=== PATIENT | female | born 1975 | race Asian ===

== ENCOUNTER 2023-07-15 16:01 | Emergency (ER) | payer OTHER ==
[2023-07-15 16:24] VITALS: BP 123/87; PULSE 83; RESP 20; TEMP 98.5; BMI 22.9
[2023-07-15] MEDS ORDERED: DOXYCYCLINE HYCLATE 100 MG CAPSULE PO ONE (16:36)
[2023-07-15] MEDS: DOXYCYCLINE HYCLATE 100 MG CAPSULE PO ONE (16:36)
== END 2023-07-15 16:37 | disposition home or self-care (01) ==
LOC: FER 16:01
DX: S10.86XA Insect bite of other specified part of neck, initial encounter (principal); W57.XXXA Bitten or stung by nonvenomous insect and other nonvenomous arthropods, initial encounter
CPT/HCPCS: 99283-25